=== PATIENT | female | born 2000 | race Two or more races ===

== ENCOUNTER 2022-07-24 20:44 | Emergency (ER) | payer MEDICAID, OTHER ==
[~2022-07-24] VITALS: Ht 165.1 cm; Wt 76.3 kg
[2022-07-25] MEDS ORDERED: CYCL-837 PO (01:41)
[2022-07-25] MEDS ORDERED: ACET-1158 PO (01:41)
[2022-07-25 02:00] VITALS: BP 132/70
== END 2022-07-25 02:38 | disposition home or self-care (01) ==
LOC: ER 20:44
DX: S20.212A Contusion of left front wall of thorax, initial encounter (principal); R51.9 Headache, unspecified; V89.2XXA Person injured in unspecified motor-vehicle accident, traffic, initial encounter; Y93.89 Activity, other specified; Y92.410 Unspecified street and highway as the place of occurrence of the external cause; Y99.8 Other external cause status
CPT/HCPCS: 71101